=== PATIENT | female | born 1975 | race African-American/Black ===

== ENCOUNTER 2016-07-12 11:42 | Day surgery (SDC) | payer OTHER ==
[~2016-07-12] VITALS: Ht 170.2 cm; Wt 109.0 kg
[~2016-07-12 11:42] MED LIST: ALLERGY SHOTS IM; ALLZITAL 25-321 EACH PO; ALPRAZOLAM1 MG PO; ASPIRIN325 MG PO; DULERA 100 MCG/13 GM IH; DULERA 200 MCG/13 GM IH; ERGOCALCIF50000 UNIT PO; FLONASE16 G1 BOTH NARES; GLUCOPHAGE1000 MG PO; IBUPROFEN800 MG PO; JANUVIA100 MG PO; LANTUS 10100 UNITS/ SC; LISINOPRIL-HCT1 EACH PO; LO-DOSE ASPIRIN81 M2 PO; LYRICA100 MG PO; METFORMIN HCL500 MG PO; NAPROSYN500 MG PO; OXYCODONE HCL10 MG PO; PREVACID30 MG PO; PROAIR HFA8.5 GM IH; SERTRALINE HCL50 MG PO; SYMBICORT60 INHALAT IH; VALACYCLOVIR500 MG PO
[2016-07-12 12:18] LABS: POINT-OF-CARE METER ID UU14174212
[2016-07-16] MEDS ORDERED: ZANAFLEX2 M1 PO (15:21)
[2016-07-16] MEDS ORDERED: OXYCODONE HCL10 MG PO (15:21)
[2016-07-16] MEDS ORDERED: NAPROSYN500 MG PO (15:21)
== END 2016-07-12 13:50 | disposition home or self-care (01) ==
LOC: PAIN 11:42 → SDC 12:30 → PAIN 13:50
PROVIDERS: Anesthesiology Pain Medicine
DX: M47.816 Spondylosis without myelopathy or radiculopathy, lumbar region (principal); M54.5 Low back pain; F41.9 Anxiety disorder, unspecified; M54.12 Radiculopathy, cervical region; M47.812 Spondylosis without myelopathy or radiculopathy, cervical region; M79.7 Fibromyalgia; Z79.891 Long term (current) use of opiate analgesic; I10 Essential (primary) hypertension; J45.909 Unspecified asthma, uncomplicated; Z86.73 Personal history of transient ischemic attack (TIA), and cerebral infarction without residual deficits; K21.9 Gastro-esophageal reflux disease without esophagitis; E78.5 Hyperlipidemia, unspecified; E11.9 Type 2 diabetes mellitus without complications; G89.21 Chronic pain due to trauma; Z91.018 Allergy to other foods
CPT/HCPCS: 82948; J1030; J2250; J3010; S0020

== ENCOUNTER 2016-07-19 09:30 | Day surgery (SDC) | payer OTHER ==
[~2016-07-19] VITALS: Ht 170.2 cm; Wt 109.0 kg
[~2016-07-19 09:30] MED LIST changes: +ZANAFLEX2 M1 PO
[2016-07-19 09:52] LABS: POINT-OF-CARE METER ID UU14174212
[2016-07-19 11:33] LABS: POINT-OF-CARE METER ID UU14174212
== END 2016-07-19 11:47 | disposition home or self-care (01) ==
LOC: PAIN 09:30 → SDC 10:15 → PAIN 11:47
PROVIDERS: Anesthesiology Pain Medicine
DX: M47.816 Spondylosis without myelopathy or radiculopathy, lumbar region (principal); M54.5 Low back pain; F41.9 Anxiety disorder, unspecified; M54.12 Radiculopathy, cervical region; G89.29 Other chronic pain; M47.812 Spondylosis without myelopathy or radiculopathy, cervical region; M79.7 Fibromyalgia; Z79.891 Long term (current) use of opiate analgesic; I10 Essential (primary) hypertension; J45.909 Unspecified asthma, uncomplicated; Z86.73 Personal history of transient ischemic attack (TIA), and cerebral infarction without residual deficits; K21.9 Gastro-esophageal reflux disease without esophagitis; E78.5 Hyperlipidemia, unspecified; F32.9 Major depressive disorder, single episode, unspecified; E11.9 Type 2 diabetes mellitus without complications; Z68.36 Body mass index [BMI] 36.0-36.9, adult; Z91.018 Allergy to other foods
CPT/HCPCS: 82948; J1030; J2250; J3010; S0020

== ENCOUNTER 2017-03-18 06:37 | Day surgery (SDC) | payer OTHER ==
[~2017-03-18] VITALS: Ht 170.2 cm; Wt 69.4 kg
[2017-03-18 07:37] LABS: POINT-OF-CARE METER ID UU14174212; POINT-OF-CARE USER ID AHSRSCSLC11
[2017-03-21] MEDS ORDERED: TENORMIN25 MG PO (11:59)
[2017-03-21] MEDS ORDERED: GLUCOPHAGE500 MG PO (11:59)
[2017-03-21] MEDS ORDERED: ZOLOFT25 MG PO (12:00)
[2017-03-21] MEDS ORDERED: SPIRIVA18 MCG IH (12:00)
== END 2017-03-18 08:47 | disposition home or self-care (01) ==
LOC: PAIN 06:37 → SDC 07:30 → PAIN 08:47
PROVIDERS: Anesthesiology Pain Medicine
DX: M47.816 Spondylosis without myelopathy or radiculopathy, lumbar region (principal); M54.5 Low back pain; G89.29 Other chronic pain; M47.22 Other spondylosis with radiculopathy, cervical region; M79.7 Fibromyalgia; E11.9 Type 2 diabetes mellitus without complications; I10 Essential (primary) hypertension; Z79.891 Long term (current) use of opiate analgesic; Z79.84 Long term (current) use of oral hypoglycemic drugs
CPT/HCPCS: 82948; J1030; J2250; J3010; S0020

== ENCOUNTER 2017-03-25 06:42 | Day surgery (SDC) | payer OTHER ==
[~2017-03-25] VITALS: Ht 170.2 cm; Wt 69.5 kg
[~2017-03-25 06:42] MED LIST changes: +GLUCOPHAGE500 MG PO; +SPIRIVA18 MCG IH; +TENORMIN25 MG PO; +ZOLOFT25 MG PO
[2017-03-25 07:13] LABS: POINT-OF-CARE METER ID UU14174212
== END 2017-03-25 08:48 | disposition home or self-care (01) ==
LOC: PAIN 06:42
PROVIDERS: Anesthesiology Pain Medicine
DX: M47.26 Other spondylosis with radiculopathy, lumbar region (principal); M54.5 Low back pain; G89.29 Other chronic pain; M47.812 Spondylosis without myelopathy or radiculopathy, cervical region; M79.7 Fibromyalgia; I10 Essential (primary) hypertension; E11.9 Type 2 diabetes mellitus without complications; J44.9 Chronic obstructive pulmonary disease, unspecified; K21.9 Gastro-esophageal reflux disease without esophagitis; I69.354 Hemiplegia and hemiparesis following cerebral infarction affecting left non-dominant side; Z79.82 Long term (current) use of aspirin; Z79.891 Long term (current) use of opiate analgesic; Z79.84 Long term (current) use of oral hypoglycemic drugs
CPT/HCPCS: 80048; 82948; J1030; J2250; J3010; S0020

== ENCOUNTER 2017-04-22 08:18 | Day surgery (SDC) | payer OTHER ==
[~2017-04-22] VITALS: Ht 139.7 cm; Wt 69.5 kg
[2017-04-22 08:59] LABS: POINT-OF-CARE METER ID UU14174212
== END 2017-04-22 10:05 | disposition home or self-care (01) ==
LOC: PAIN 08:18 → SDC 09:00 → PAIN 10:05
PROVIDERS: Anesthesiology Pain Medicine
DX: M54.12 Radiculopathy, cervical region (principal); M47.22 Other spondylosis with radiculopathy, cervical region; G89.29 Other chronic pain; M50.13 Cervical disc disorder with radiculopathy, cervicothoracic region; M79.7 Fibromyalgia; M54.5 Low back pain; E11.9 Type 2 diabetes mellitus without complications; I10 Essential (primary) hypertension; Z79.891 Long term (current) use of opiate analgesic; Z79.82 Long term (current) use of aspirin; Z79.84 Long term (current) use of oral hypoglycemic drugs
CPT/HCPCS: 82948; J1100; J2250; J3010

== ENCOUNTER 2017-05-20 07:09 | Day surgery (SDC) | payer OTHER ==
[~2017-05-20] VITALS: Ht 170.2 cm; Wt 63.0 kg
== END 2017-05-20 09:04 | disposition home or self-care (01) ==
LOC: PAIN 07:09
PROVIDERS: Anesthesiology Pain Medicine
DX: M47.22 Other spondylosis with radiculopathy, cervical region (principal); M54.2 Cervicalgia; G89.29 Other chronic pain; M79.7 Fibromyalgia; M47.816 Spondylosis without myelopathy or radiculopathy, lumbar region; M54.5 Low back pain; M54.81 Occipital neuralgia; E11.9 Type 2 diabetes mellitus without complications; I10 Essential (primary) hypertension; J44.9 Chronic obstructive pulmonary disease, unspecified; Z86.73 Personal history of transient ischemic attack (TIA), and cerebral infarction without residual deficits; K21.9 Gastro-esophageal reflux disease without esophagitis; Z79.891 Long term (current) use of opiate analgesic
CPT/HCPCS: 82948; J1030; J1100; J2250; J3010